=== PATIENT | female | born 1985 | race Caucasian/White ===

== ENCOUNTER → 2018-07-27 | Outpatient (CLI) | payer OTHER ==
[~2018-07-27] MED LIST: ADAL40PEN; CIPR500 PO; HYDACE5 PO; METR500 PO; MONO-LINYAH1 EACH PO; PROM25 PO; SERT100 PO; TRAM50 PO
[2018-07-27 14:30] LABS: BASOPHILS ABSOLUTE AUTO 0.03 K/mm3 (0.00-0.23); BASOPHILS PERCENT AUTO 1 % (0-2); EOSINOPHILS ABSOLUTE AUTO 0.16 K/mm3 (0.00-0.68); EOSINOPHILS PERCENT AUTO 3 % (0-6); Hematocrit 37.3 % (33.0-51.0); Hemoglobin 13.1 g/dL (11.5-16.0); IMMATURE GRAN ABSOLUTE AUTO 0.02 K/mm3 (0.00-0.10); IMMATURE GRAN PERCENT AUTO 0 % (0-1); LYMPHOCYTES ABSOLUTE AUTO 1.52 K/mm3 (0.84-5.20); LYMPHOCYTES PERCENT AUTO 28 % (21-46); MONOCYTES ABSOLUTE AUTO 0.35 K/mm3 (0.16-1.47); MONOCYTES PERCENT AUTO 6 % (4-13); Mean Corpuscular HGB 30.3 pg (26.0-34.0); Mean Corpuscular HGB Conc 35.1 g/dL (31.5-36.5); Mean Corpuscular Volume 86 fL (80-100); Mean Platelet Volume 8.5 fL (9.1-12.4); NEUTROPHILS ABSOLUTE AUTO 3.36 K/mm3 (1.96-9.15); NEUTROPHILS PERCENT AUTO 62 % (41-73); Platelet Count 392 K/mm3 (150-400); RDW Coefficient Variation 13.7 % (11.7-14.2); RDW Standard Deviation 41.8 fL (35.1-46.3); Red Blood Cell Count 4.32 M/mm3 (3.80-5.20); White Blood Cell Count 5.44 K/mm3 (4.00-11.30)
[2018-07-27 14:47] LABS: Alanine Aminotransfer (ALT/SGP 22 U/L (12-78); Albumin, Blood 3.7 g/dL (3.4-5.0); Albumin/Globulin Ratio 0.9 (0.8-1.8); Alk Phos 57 U/L (40-126); Anion Gap 9 mmol/L (6-16); Aspartate Aminotrans (AST/SGOT 17 U/L (12-37); Bilirubin, Total 0.5 mg/dL (0.1-1.0); Blood Urea Nitrogen 6 mg/dL (8-24); CO2, Blood 26 mmol/L (21-32); Calcium, Blood 9.1 mg/dL (8.5-10.1); Chloride, Blood 105 mmol/L (98-108); Creatinine, Blood 0.67 mg/dL (0.40-1.00); Globulin, Blood 3.9 g/dL (2.2-4.0); Glomerular Filtration Rate >60 (60-); Glucose, Blood 87 mg/dL (70-99); Potassium, Blood 3.5 mmol/L (3.5-5.5); Sodium, Blood 140 mmol/L (136-145); Total Protein, Blood 7.6 g/dL (6.4-8.2)
[2018-07-27 14:48] LABS: Troponin I <0.017 ng/mL (0.000-0.040)
== END ==
LOC: LAB EV 14:26 → LAB SHORT 14:26
PROVIDERS: Physician Assistant
DX: R07.9 Chest pain, unspecified (principal); N39.0 Urinary tract infection, site not specified; R10.9 Unspecified abdominal pain
CPT/HCPCS: 80053; 83690; 84484; 85025; 85379; 87086

== ENCOUNTER → 2018-12-20 | Outpatient (CLI) | payer OTHER | END | disposition home or self-care (01) | LOC: LAB SHORT 19:11 → LAB 19:11 | PROVIDERS: Nurse Practitioner Family | DX: Z12.4 Encounter for screening for malignant neoplasm of cervix (principal) | CPT/HCPCS: G0145 ==

== ENCOUNTER 2019-01-30 14:27 | Emergency (ER) | payer OTHER ==
[~2019-01-30] VITALS: Ht 144.8 cm; Wt 45.4 kg
[2019-01-30] MEDS ORDERED: Ultram50 MG PO (17:59)
== END 2019-01-30 18:02 | disposition home or self-care (01) ==
LOC: ER 14:27
DX: M25.561 Pain in right knee (principal); Z88.8 Allergy status to other drugs, medicaments and biological substances; Z88.5 Allergy status to narcotic agent; Z79.899 Other long term (current) drug therapy
CPT/HCPCS: 73562-RT; 99283-25

== ENCOUNTER 2019-04-17 00:18 | Day surgery (SDC) | payer OTHER ==
[~2019-04-17 00:18] MED LIST changes: +Ultram50 MG PO
== END 2019-04-17 16:16 | disposition home or self-care (01) ==
LOC: ATC 00:18
DX: K50.90 Crohn's disease, unspecified, without complications (principal); Z88.5 Allergy status to narcotic agent; Z88.6 Allergy status to analgesic agent
CPT/HCPCS: 96375; 96413; 96415; A9270; J1720; J7050; Q0163; Q5103

== ENCOUNTER 2019-05-08 00:22 | Day surgery (SDC) | payer OTHER | END 2019-05-08 16:40 | disposition home or self-care (01) | LOC: ATC 00:22 | DX: K50.90 Crohn's disease, unspecified, without complications (principal); F41.9 Anxiety disorder, unspecified; F32.9 Major depressive disorder, single episode, unspecified; Z79.899 Other long term (current) drug therapy; Z88.8 Allergy status to other drugs, medicaments and biological substances | CPT/HCPCS: 96375; 96413; 96415; A9270; J1720; J7050; Q0163; Q5103 ==

== ENCOUNTER 2019-05-22 00:18 | Day surgery (SDC) | payer OTHER | END 2019-05-22 23:09 | disposition home or self-care (01) | LOC: ATC 00:18 | DX: K50.90 Crohn's disease, unspecified, without complications (principal); F41.9 Anxiety disorder, unspecified; F32.9 Major depressive disorder, single episode, unspecified; Z79.899 Other long term (current) drug therapy; Z88.8 Allergy status to other drugs, medicaments and biological substances | CPT/HCPCS: 96375; 96413; 96415; A9270; J1720; J7050; Q0163; Q5103 ==

== ENCOUNTER 2019-07-17 00:05 | Day surgery (SDC) | payer OTHER | END 2019-07-17 17:02 | disposition home or self-care (01) | LOC: ATC 00:05 | DX: K50.90 Crohn's disease, unspecified, without complications (principal); F41.9 Anxiety disorder, unspecified; F32.9 Major depressive disorder, single episode, unspecified; R62.50 Unspecified lack of expected normal physiological development in childhood; Z79.899 Other long term (current) drug therapy; Z88.5 Allergy status to narcotic agent; Z88.6 Allergy status to analgesic agent | CPT/HCPCS: 96365; 96366; 96375; A9270; J1720; J7050; Q0163; Q5103 ==

== ENCOUNTER 2019-08-27 13:55 | Emergency (ER) | payer OTHER ==
[~2019-08-27] VITALS: Ht 144.8 cm; Wt 45.4 kg
== END 2019-08-27 15:51 | disposition home or self-care (01) ==
LOC: ER 13:55
DX: S80.02XA Contusion of left knee, initial encounter (principal); Z88.5 Allergy status to narcotic agent; Z88.6 Allergy status to analgesic agent; Z79.899 Other long term (current) drug therapy; W19.XXXA Unspecified fall, initial encounter
CPT/HCPCS: 73562-LT; 99283-25

== ENCOUNTER 2019-09-11 00:10 | Day surgery (SDC) | payer OTHER | END 2019-09-11 16:54 | disposition home or self-care (01) | LOC: ATC 00:10 | DX: K50.90 Crohn's disease, unspecified, without complications (principal); F43.10 Post-traumatic stress disorder, unspecified; F43.23 Adjustment disorder with mixed anxiety and depressed mood; F89 Unspecified disorder of psychological development; Z79.899 Other long term (current) drug therapy; Z88.5 Allergy status to narcotic agent; Z88.6 Allergy status to analgesic agent | CPT/HCPCS: 96375; 96413; 96415; A9270; J0171; J1720; J7050; J7512; Q0163; Q5103 ==

== ENCOUNTER 2019-11-06 00:04 | Day surgery (SDC) | payer OTHER | END 2019-11-06 16:26 | disposition home or self-care (01) | LOC: ATC 00:04 | DX: K50.90 Crohn's disease, unspecified, without complications (principal); F41.9 Anxiety disorder, unspecified; F32.9 Major depressive disorder, single episode, unspecified; Z79.899 Other long term (current) drug therapy; Z88.6 Allergy status to analgesic agent; Z88.5 Allergy status to narcotic agent | CPT/HCPCS: A9270; J1720; J7050; Q0163; Q5103 ==

== ENCOUNTER 2020-01-01 00:15 | Day surgery (SDC) | payer OTHER ==
[2020-01-01] MEDS ORDERED: INFLECTRA100 MG IV (14:44)
== END 2020-01-01 16:28 | disposition home or self-care (01) ==
LOC: ATC 00:15
DX: K50.90 Crohn's disease, unspecified, without complications (principal); F41.9 Anxiety disorder, unspecified; F32.9 Major depressive disorder, single episode, unspecified; Z79.899 Other long term (current) drug therapy; Z88.5 Allergy status to narcotic agent
CPT/HCPCS: A9270; J1720; J7050; Q0163; Q5103

== ENCOUNTER 2020-04-23 00:07 | Day surgery (SDC) | payer OTHER ==
[~2020-04-23 00:07] MED LIST changes: +INFLECTRA100 MG IV
== END 2020-04-23 16:15 | disposition home or self-care (01) ==
LOC: ATC 00:07
DX: K50.90 Crohn's disease, unspecified, without complications (principal); F32.9 Major depressive disorder, single episode, unspecified; F41.9 Anxiety disorder, unspecified; Z79.899 Other long term (current) drug therapy; Z88.6 Allergy status to analgesic agent; Z88.5 Allergy status to narcotic agent
CPT/HCPCS: 96375; 96413; 96415; A9270; J1720; J7050; J7512; Q0163; Q5103

== ENCOUNTER 2020-06-17 00:15 | Day surgery (SDC) | payer OTHER ==
[2020-06-19] MEDS ORDERED: GABA300 PO (15:46)
[2020-06-19] MEDS ORDERED: AMIT25 PO (15:46)
[2020-06-19] MEDS ORDERED: CYCL10 PO (15:46)
[2020-06-19] MEDS ORDERED: ONDA4 PO (15:47)
[2020-06-19] MEDS ORDERED: AZAT50 PO (15:48)
== END 2020-06-17 16:19 | disposition home or self-care (01) ==
LOC: ATC 00:15
DX: K50.90 Crohn's disease, unspecified, without complications (principal); F41.9 Anxiety disorder, unspecified; F32.9 Major depressive disorder, single episode, unspecified; Z79.899 Other long term (current) drug therapy; Z88.5 Allergy status to narcotic agent; Z88.6 Allergy status to analgesic agent
CPT/HCPCS: 96413; 96415; A9270; J1720; J7050; Q0163; Q5103

== ENCOUNTER 2020-08-12 00:08 | Day surgery (SDC) | payer OTHER ==
[~2020-08-12 00:08] MED LIST changes: +AMIT25 PO; +AZAT50 PO; +CYCL10 PO; +GABA300 PO; +ONDA4 PO
== END 2020-08-12 16:45 | disposition home or self-care (01) ==
LOC: ATC 00:08
DX: K50.90 Crohn's disease, unspecified, without complications (principal); M95.2 Other acquired deformity of head; F41.9 Anxiety disorder, unspecified; F32.9 Major depressive disorder, single episode, unspecified; F89 Unspecified disorder of psychological development; Z88.5 Allergy status to narcotic agent; Z88.6 Allergy status to analgesic agent; Z79.899 Other long term (current) drug therapy
CPT/HCPCS: A9270; J1720; J7050; Q0163; Q5103

== ENCOUNTER 2020-10-07 00:28 | Day surgery (SDC) | payer OTHER | END 2020-10-07 16:19 | disposition home or self-care (01) | LOC: ATC 00:28 | DX: K50.90 Crohn's disease, unspecified, without complications (principal); F41.9 Anxiety disorder, unspecified; F32.9 Major depressive disorder, single episode, unspecified | CPT/HCPCS: 96375; 96413; 96415; A9270; J1720; J7050; Q5103 ==

== ENCOUNTER 2020-12-02 00:04 | Day surgery (SDC) | payer OTHER | END 2020-12-02 16:12 | disposition home or self-care (01) | LOC: ATC 00:04 | DX: K51.30 Ulcerative (chronic) rectosigmoiditis without complications (principal); R23.1 Pallor; K90.0 Celiac disease; F43.10 Post-traumatic stress disorder, unspecified; F43.23 Adjustment disorder with mixed anxiety and depressed mood | CPT/HCPCS: 96375; 96413; 96415; A9270; J1720; J7050; Q5103 ==

== ENCOUNTER 2021-01-24 00:48 | Day surgery (SDC) | payer OTHER | END 2021-01-24 16:10 | disposition home or self-care (01) | LOC: ATC 00:48 | DX: K50.90 Crohn's disease, unspecified, without complications (principal); Z79.899 Other long term (current) drug therapy; Z88.5 Allergy status to narcotic agent | CPT/HCPCS: 96375; 96413; 96415; A9270; J1720; J7050; Q5103 ==

== ENCOUNTER 2021-07-11 04:11 | Day surgery (SDC) | payer OTHER ==
[~2021-07-11] VITALS: Wt 55.7 kg
== END 2021-07-11 16:07 | disposition home or self-care (01) ==
LOC: ATC 04:11
DX: K51.30 Ulcerative (chronic) rectosigmoiditis without complications (principal); Z88.6 Allergy status to analgesic agent; Z88.5 Allergy status to narcotic agent
CPT/HCPCS: 96375; 96413; 96415; A9270; J1720; J7050; Q5103

== ENCOUNTER 2021-10-31 01:23 | Day surgery (SDC) | payer OTHER ==
[~2021-10-31] VITALS: Wt 55.6 kg
== END 2021-10-31 15:31 | disposition home or self-care (01) ==
LOC: ATC 01:23
DX: K50.90 Crohn's disease, unspecified, without complications (principal); Z88.8 Allergy status to other drugs, medicaments and biological substances
CPT/HCPCS: A9270; J1720; J7050; Q5103

== ENCOUNTER 2022-02-20 00:27 | Day surgery (SDC) | payer OTHER ==
[~2022-02-20] VITALS: Wt 57.0 kg
[2022-02-20] MEDS ORDERED: TRIDERM28.4 GM TOP (15:06)
== END 2022-02-20 16:20 | disposition home or self-care (01) ==
LOC: ATC 00:27
DX: K50.90 Crohn's disease, unspecified, without complications (principal); F43.10 Post-traumatic stress disorder, unspecified; M41.9 Scoliosis, unspecified; J45.909 Unspecified asthma, uncomplicated; K64.8 Other hemorrhoids
CPT/HCPCS: A9270; J1720; J7050; Q5103

== ENCOUNTER 2022-04-17 00:20 | Day surgery (SDC) | payer OTHER ==
[~2022-04-17] VITALS: Wt 53.5 kg
[~2022-04-17 00:20] MED LIST changes: +TRIDERM28.4 GM TOP
== END 2022-04-17 15:58 | disposition home or self-care (01) ==
LOC: ATC 00:20
DX: K51.30 Ulcerative (chronic) rectosigmoiditis without complications (principal); M41.9 Scoliosis, unspecified; J45.909 Unspecified asthma, uncomplicated
CPT/HCPCS: 96375; 96413; 96415; A9270; J1720; J7050; Q5103

== ENCOUNTER 2022-06-12 03:28 | Day surgery (SDC) | payer OTHER | END 2022-06-12 16:03 | disposition home or self-care (01) | LOC: ATC 03:28 | DX: K50.90 Crohn's disease, unspecified, without complications (principal); F41.9 Anxiety disorder, unspecified; F32.A Depression, unspecified | CPT/HCPCS: A9270; J1720; J7050; Q5103 ==

== ENCOUNTER 2022-08-07 00:09 | Day surgery (SDC) | payer OTHER ==
[~2022-08-07] VITALS: Wt 48.3 kg
== END 2022-08-07 15:48 | disposition home or self-care (01) ==
LOC: ATC 00:09
DX: K50.90 Crohn's disease, unspecified, without complications (principal); M41.9 Scoliosis, unspecified; Z88.5 Allergy status to narcotic agent; Z88.6 Allergy status to analgesic agent
CPT/HCPCS: 96375; 96413; 96415; A9270; J1720; J7050; Q5103

== ENCOUNTER 2022-10-15 11:30 | Day surgery (SDC) | payer OTHER ==
[~2022-10-15] VITALS: Ht 144.8 cm; Wt 49.9 kg
--- NOTE | 2022-10-15 14:31 | NUR ---
10/15/22 1431 VINI SIMON PT WAS NOT CLEANED OUT/ RN ASSSISTED WITH AN FLEETS ENEMA. WITH GOOD RESULTS/ MEDIUM YELLOW TRANSPARENT
== END 2022-10-15 14:55 | disposition home or self-care (01) ==
LOC: ORSCSDS 11:30
PROVIDERS: Internal Medicine Gastroenterology
PROC: 0DBN8ZX Excision of Sigmoid Colon, Via Natural or Artificial Opening Endoscopic, Diagnostic (ICD-10-PCS; principal; 2022-10-15 13:00)
DX: R10.32 Left lower quadrant pain (principal); K50.90 Crohn's disease, unspecified, without complications; D12.5 Benign neoplasm of sigmoid colon; Z79.899 Other long term (current) drug therapy
CPT/HCPCS: 88305; J2704; J7120

== ENCOUNTER 2022-11-27 01:46 | Day surgery (SDC) | payer OTHER ==
[~2022-11-27] VITALS: Wt 49.4 kg
== END 2022-11-27 15:52 | disposition home or self-care (01) ==
LOC: ATC 01:46
DX: K50.90 Crohn's disease, unspecified, without complications (principal)
CPT/HCPCS: 96375; 96413; 96415; A9270; J1720; J7050; Q5103

== ENCOUNTER → 2023-01-14 | Outpatient (CLI) | payer OTHER ==
[~2023-01-14] MED LIST changes: +AZASAN75 M1; +Amitriptyline H10 MG; +CODACE30; +Cyclobenzaprine5 MG; +GABA100; +INFLECTRA100 MG; +ONDA4ODT; +SERT20L; +[UNRECOGNIZED DRUG - OTHER]
== END ==
LOC: LAB 16:00 → LAB SHORT 16:00
DX: K51.30 Ulcerative (chronic) rectosigmoiditis without complications (principal)
CPT/HCPCS: 83993

== ENCOUNTER 2023-01-22 02:34 | Day surgery (SDC) | payer OTHER ==
[2023-01-22 13:30] VITALS: BP 112/75
== END 2023-01-22 16:06 | disposition home or self-care (01) ==
LOC: ATC 02:34
DX: K50.90 Crohn's disease, unspecified, without complications (principal); Z88.5 Allergy status to narcotic agent; F43.10 Post-traumatic stress disorder, unspecified; K90.0 Celiac disease
CPT/HCPCS: 96375; 96413; 96415; A9270; J1720; J7050; Q5103

== ENCOUNTER 2023-05-14 00:17 | Day surgery (SDC) | payer OTHER ==
[2023-05-14 13:57] VITALS: BP 122/86
== END 2023-05-14 16:14 | disposition home or self-care (01) ==
LOC: ATC 00:17
DX: K50.90 Crohn's disease, unspecified, without complications (principal); J45.909 Unspecified asthma, uncomplicated; Z88.8 Allergy status to other drugs, medicaments and biological substances; Z79.899 Other long term (current) drug therapy
CPT/HCPCS: 96375; 96413; 96415; A9270; J1720; J7050; Q5103

== ENCOUNTER 2023-07-09 01:45 | Day surgery (SDC) | payer OTHER ==
[2023-07-09 13:30] VITALS: BP 125/71
== END 2023-07-09 16:10 | disposition home or self-care (01) ==
LOC: ATC 01:45
DX: K50.90 Crohn's disease, unspecified, without complications (principal); J45.909 Unspecified asthma, uncomplicated; M41.9 Scoliosis, unspecified; F43.10 Post-traumatic stress disorder, unspecified
CPT/HCPCS: 96375; 96413; 96415; A9270; J1720; J7050; Q5103

== ENCOUNTER 2023-09-03 03:12 | Day surgery (SDC) | payer OTHER ==
[2023-09-03 13:07] VITALS: BP 134/78
== END 2023-09-03 16:00 | disposition home or self-care (01) ==
LOC: ATC 03:12
DX: K50.90 Crohn's disease, unspecified, without complications (principal); F43.10 Post-traumatic stress disorder, unspecified; Z79.899 Other long term (current) drug therapy
CPT/HCPCS: 96375; 96413; 96415; A9270; J1720; J7050; Q5103

== ENCOUNTER 2023-12-27 03:50 | Day surgery (SDC) | payer OTHER ==
[2023-12-27] MEDS ORDERED: Infliximab-DYYB 300 MG in NS 250 ML IV SCH (06:00)
[2023-12-27] MEDS ORDERED: DiphenhydrAMINE HCL 25 MG Cap PO PRN (07:10)
[2023-12-27] MEDS ORDERED: Acetaminophen 325 MG TABLET PO PRN (07:10)
[2023-12-27] MEDS ORDERED: Hydrocortisone Sod Succinate 100 MG Vial IV SCH (07:10)
[2023-12-27 13:30] VITALS: BP 131/78
== END 2023-12-27 16:34 | disposition home or self-care (01) ==
LOC: ATC 03:50
DX: K50.90 Crohn's disease, unspecified, without complications (principal); F43.23 Adjustment disorder with mixed anxiety and depressed mood; F43.10 Post-traumatic stress disorder, unspecified
CPT/HCPCS: 96375; 96413; 96415; A9270; J1720; J7050; Q5103

== ENCOUNTER 2024-02-21 03:58 | Day surgery (SDC) | payer OTHER ==
[2024-02-21] MEDS ORDERED: Infliximab-DYYB 300 MG in NS 250 ML IV SCH (06:00)
[2024-02-21] MEDS ORDERED: DiphenhydrAMINE HCL 25 MG Cap PO PRN (07:25)
[2024-02-21] MEDS ORDERED: Hydrocortisone Sod Succinate 100 MG Vial IV SCH (07:25)
[2024-02-21] MEDS ORDERED: Acetaminophen 325 MG TABLET PO PRN (07:25)
[2024-02-21 13:37] VITALS: BP 113/67
== END 2024-02-21 16:45 | disposition home or self-care (01) ==
LOC: ATC 03:58
DX: K50.90 Crohn's disease, unspecified, without complications (principal); J45.909 Unspecified asthma, uncomplicated; F43.10 Post-traumatic stress disorder, unspecified
CPT/HCPCS: 96375; 96413; 96415; A9270; J1720; J7050; Q5103

== ENCOUNTER 2024-04-17 03:08 | Day surgery (SDC) | payer OTHER ==
[~2024-04-17] VITALS: Wt 58.1 kg
[2024-04-17] MEDS ORDERED: Infliximab-DYYB 300 MG in NS 250 ML IV SCH (06:55)
[2024-04-17] MEDS ORDERED: Hydrocortisone Sod Succinate 100 MG Vial IV SCH (07:00)
[2024-04-17] MEDS ORDERED: Acetaminophen 325 MG TABLET PO PRN (07:00)
[2024-04-17] MEDS ORDERED: DiphenhydrAMINE HCL 25 MG Cap PO PRN (07:00)
[2024-04-17 13:24] VITALS: BP 134/83
== END 2024-04-17 16:00 | disposition home or self-care (01) ==
LOC: ATC 03:08
DX: K50.90 Crohn's disease, unspecified, without complications (principal); Z88.5 Allergy status to narcotic agent; Z88.6 Allergy status to analgesic agent
CPT/HCPCS: 96375; 96413; 96415; A9270; J1720; J7050; Q5103

== ENCOUNTER 2024-06-12 02:07 | Day surgery (SDC) | payer OTHER ==
[~2024-06-12] VITALS: Wt 58.3 kg
[2024-06-12] MEDS ORDERED: Infliximab-DYYB 300 MG in NS 250 ML IV SCH (06:00)
[2024-06-12] MEDS ORDERED: DiphenhydrAMINE HCL 25 MG Cap PO PRN (07:20)
[2024-06-12] MEDS ORDERED: Hydrocortisone Sod Succinate 100 MG Vial IV SCH (07:20)
[2024-06-12] MEDS ORDERED: Acetaminophen 325 MG TABLET PO PRN (07:20)
[2024-06-12 13:17] VITALS: BP 124/82
== END 2024-06-12 16:18 | disposition home or self-care (01) ==
LOC: ATC 02:07
DX: K50.90 Crohn's disease, unspecified, without complications (principal); F43.10 Post-traumatic stress disorder, unspecified; K90.0 Celiac disease; Z79.899 Other long term (current) drug therapy; Z90.49 Acquired absence of other specified parts of digestive tract
CPT/HCPCS: 96375; 96413; 96415; A9270; J1720; J7050; Q5103

== ENCOUNTER 2024-08-07 03:52 | Day surgery (SDC) | payer OTHER ==
[~2024-08-07] VITALS: Wt 59.2 kg
[2024-08-07] MEDS ORDERED: Infliximab-DYYB 300 MG in NS 250 ML IV SCH (06:00)
[2024-08-07] MEDS ORDERED: DiphenhydrAMINE HCL 25 MG Cap PO SCH (07:15)
[2024-08-07] MEDS ORDERED: Hydrocortisone Sod Succinate 100 MG Vial IV SCH (07:15)
[2024-08-07] MEDS ORDERED: Acetaminophen 325 MG TABLET PO SCH (07:15)
[2024-08-07 13:47] VITALS: BP 132/91
[2024-08-07 16:18] VITALS: BP 112/71
== END 2024-08-07 23:00 | disposition home or self-care (01) ==
LOC: ATC 03:52
DX: K50.90 Crohn's disease, unspecified, without complications (principal); K90.0 Celiac disease; F43.10 Post-traumatic stress disorder, unspecified; Z79.899 Other long term (current) drug therapy; Z88.5 Allergy status to narcotic agent; Z88.6 Allergy status to analgesic agent; Z90.49 Acquired absence of other specified parts of digestive tract
CPT/HCPCS: 96375; 96413; 96415; A9270; J1720; J7050; Q5103

== ENCOUNTER 2024-10-02 07:20 | Day surgery (SDC) | payer OTHER ==
[~2024-10-02] VITALS: Wt 56.0 kg
[~2024-10-02 07:20] MED LIST changes: +Acetaminophen 325 MG TABLET PO SCH; +DiphenhydrAMINE HCL 25 MG Cap PO SCH; +Hydrocortisone Sod Succinate 100 MG Vial IV SCH; +Infliximab-DYYB 300 MG in NS 250 ML IV SCH
[2024-10-02 14:20] VITALS: BP 159/88
== END 2024-10-02 17:13 | disposition home or self-care (01) ==
LOC: ATC 07:20
DX: K50.90 Crohn's disease, unspecified, without complications (principal); J45.909 Unspecified asthma, uncomplicated; Z79.899 Other long term (current) drug therapy; Z88.6 Allergy status to analgesic agent; Z88.5 Allergy status to narcotic agent
CPT/HCPCS: 96375; 96413; 96415; A9270; J1720; J7050; Q5103

== ENCOUNTER 2024-12-04 01:35 | Day surgery (SDC) | payer OTHER ==
[~2024-12-04 01:35] MED LIST changes: -Acetaminophen 325 MG TABLET PO SCH; -DiphenhydrAMINE HCL 25 MG Cap PO SCH; -Hydrocortisone Sod Succinate 100 MG Vial IV SCH; -Infliximab-DYYB 300 MG in NS 250 ML IV SCH
[2024-12-04] MEDS ORDERED: Infliximab-DYYB 300 MG in NS 250 ML IV SCH (06:00)
[2024-12-04] MEDS ORDERED: DiphenhydrAMINE HCL 25 MG Cap PO SCH (07:20)
[2024-12-04] MEDS ORDERED: Hydrocortisone Sod Succinate 100 MG Vial IV SCH (07:20)
[2024-12-04] MEDS ORDERED: Acetaminophen 325 MG TABLET PO SCH (07:20)
[2024-12-04 15:29] VITALS: BP 113/69
[2024-12-04 15:44] LABS: Performing Lab PROMETHEUS; Test Name ANSER IFX
== END 2024-12-04 17:35 | disposition home or self-care (01) ==
LOC: ATC 01:35
PROVIDERS: Physician Assistant Medical
DX: K51.30 Ulcerative (chronic) rectosigmoiditis without complications (principal); J45.909 Unspecified asthma, uncomplicated; Z88.8 Allergy status to other drugs, medicaments and biological substances; Z79.899 Other long term (current) drug therapy
CPT/HCPCS: 96375; 96413; 96415; A9270; J1720; J7050; Q5103

== ENCOUNTER 2024-12-08 11:51 | Day surgery (SDC) | payer OTHER ==
[~2024-12-08] VITALS: Ht 144.8 cm; Wt 53.9 kg
[~2024-12-08 11:51] MED LIST changes: +propofoL 50 ML IV ONE
[2024-12-08] MEDS ORDERED: Lactated Ringer's 1,000 ML IV ONE (13:46)
--- NOTE | 2024-12-08 14:16 | NUR ---
12/08/24 1416 Mona Mcginnis PT DESATURATED TO 65% ON 3L NC 2 MINUTES AFTER SEDATION. POM MASK PLACED AT 15L W/ JAW THRUST INTERVENTION. PT QUICKLY INCREASED TO 100%. CASE CHANGED TO FLEX SIG D/T POOR PREP. PER MD, PT HAS SMALL AIRWAY AND DESATURATION, PT NEEDS TO BE MAC IN THE FUTURE.
[2024-12-08 15:20] VITALS: BP 127/84
--- NOTE | 2024-12-08 15:23 | NUR ---
12/08/24 1523 Enrico Zheng ADDITIONAL QUESTIONS ABOUT D/C CLARIFIED WITH FAMILY PRESENT AT TIME OF D/C. PT INSTRUCTED TO FOLLOW UP WITH DR. JOHNSON'S OFFICE REGARDING REPEATE COLONOSCOPY.
== END 2024-12-08 15:00 | disposition home or self-care (01) ==
LOC: ORSCSDS 11:51
PROVIDERS: Internal Medicine Gastroenterology
PROC: 0DJD8ZZ Inspection of Lower Intestinal Tract, Via Natural or Artificial Opening Endoscopic (ICD-10-PCS; principal; 2024-12-08 13:45)
DX: K50.90 Crohn's disease, unspecified, without complications (principal); K90.0 Celiac disease; R62.50 Unspecified lack of expected normal physiological development in childhood; F43.10 Post-traumatic stress disorder, unspecified; Z79.899 Other long term (current) drug therapy
CPT/HCPCS: J2704

== ENCOUNTER 2024-12-25 17:10 | Inpatient (IN) | payer OTHER ==
[~2024-12-25] VITALS: Ht 162.6 cm; Wt 56.1 kg
[~2024-12-25 17:10] MED LIST changes: -Amitriptyline H10 MG; -Cyclobenzaprine5 MG; -GABA100; -ONDA4ODT; +ONDA4ODT PO; -propofoL 50 ML IV ONE
[2024-12-25] MEDS ORDERED: Lactated Ringer's 1,000 ML IV ONE ×2 (17:20→17:45)
[2024-12-25 17:40] LABS: Calcium, Ionized (POC) 1.34 mmol/L (1.10-1.46); Chloride (POC) 119 mmol/L (98-108); Creatinine (POC) 0.9 mg/dL (0.6-1.0); Glucose (ISTAT POC) 110 mg/dL (70-99); Hemoglobin (POC) 17.3 g/dL (12.0-16.0); Potassium (POC) 2.9 mmol/L (3.5-5.5); Sodium (POC) 142 mmol/L (135-148); Total CO2 (POC) 7 mmol/L (21-32)
[2024-12-25 17:47] LABS: Base Excess Venous -25.1 mmol/L; Bicarbonate Venous 9.4 mmol/L (24.0-30.0); Mean Platelet Volume 8.8 fL (9.1-12.4); PCO2 Venous 16.7 mmHg (38-42); RDW Coefficient Variation 15.8 % (11.7-14.2)
[2024-12-25 17:48] LABS: pH Blood Venous 7.08 (7.34-7.37)
[2024-12-25 17:55] LABS: Hematocrit 48.3 % (33.0-51.0); Hemoglobin 16.6 g/dL (11.5-16.0); Mean Corpuscular HGB 29.8 pg (26.0-34.0); Mean Corpuscular HGB Conc 34.4 g/dL (31.5-36.5); Mean Corpuscular Volume 87 fL (80-100); Platelet Count 706 K/mm3 (150-400); RDW Standard Deviation 48.2 fL (35.1-46.3); Red Blood Cell Count 5.57 M/mm3 (3.80-5.20); White Blood Cell Count 35.18 K/mm3 (4.00-11.30)
[2024-12-25 18:13] LABS: BAND PERCENT MAN 16 % (0-8); BASOPHILS PERCENT MAN 0 % (0-2); EOSINOPHILS PERCENT MAN 0 % (0-6); LYMPHOCYTES PERCENT MAN 4 % (21-46); MONOCYTES ABSOLUTE MAN 2.11 K/mm3 (0.16-1.47); MONOCYTES PERCENT MAN 6 % (4-13); NEUTROPHILS ABSOLUTE MAN 31.66 K/mm3 (1.96-9.15); SEG NEUTROPHILS PERCENT MAN 74 % (41-73); TOTAL CELLS COUNTED 100
[2024-12-25 18:28] LABS: Magnesium, Blood 2.6 mg/dL (1.6-2.4)
[2024-12-25] MEDS ORDERED: Ondansetron HCl 2 MG / ML 2ML Vial IV ONE (18:30)
[2024-12-25 18:32] LABS: Influenza A, PCR NEGATIVE (NEGATIVE); Influenza B, PCR NEGATIVE (NEGATIVE); Resp Syncytial Virus, PCR NEGATIVE (NEGATIVE); SARS-Cov-2 (COVID-19) PCR, MMC NEGATIVE (NEGATIVE)
[2024-12-25 18:43] LABS: Albumin, Blood 4.6 g/dL (3.4-5.0); Albumin/Globulin Ratio 0.9 (0.8-1.8); Bilirubin, Total 0.5 mg/dL (0.1-1.0); Bun/Creatinine Ratio 25.6 (12.0-20.0); Calcium, Blood 10.3 mg/dL (8.5-10.1); Creatinine, Blood 0.78 mg/dL (0.40-1.00); Globulin, Blood 5.2 g/dL (2.2-4.0); Potassium, Blood 2.9 mmol/L (3.5-5.5); Total Protein, Blood 9.8 g/dL (6.4-8.2)
[2024-12-25] MEDS ORDERED: Potassium Chl 20MEQ/Water100ML 300 ML IV ONE (18:50)
[2024-12-25 18:53] LABS: Source, Urine Clean Catch
[2024-12-25 19:36] LABS: Bilirubin, Urine Neg (Neg); Blood, Urine 5+ (Neg); Color, Urine Yellow (P-Yellow); Glucose Qualitative, Urine Neg (Neg); Ketones, Urine 4+ (Neg); Leukocyte Esterase, Urine 1+ (Neg); Nitrite, Urine Neg (Neg); Protein, Urine 3+ (Neg); Specific Gravity, Urine 1.025 (1.003-1.022); Urobilinogen, Urine NORM (Normal)
[2024-12-25 19:45] LABS: Appearance, Urine Hazy (Clear)
[2024-12-25 19:47] LABS: Amorphous Mod (0-Heavy); Bacteria Many /hpf; Mucus Light (0-Heavy); Red Blood Cells, Urine 25-50 /hpf (0-2); Squamous Epithelial Cells Few /hpf (Few)
[2024-12-25] MEDS ORDERED: Sodium Bicarb 8.4% 1 MEQ/ML 50 ML Vial ONE (19:49)
[2024-12-25] MEDS ORDERED: CefTRIAXone Sodium 1,000 MG in NS 50 ML IV ONE (20:35)
[2024-12-25] MEDS ORDERED: Sodium Bicarb 8.4% 1 MEQ/ML 50 ML Vial IV ONE (21:20)
[2024-12-25] MEDS ORDERED: Sodium Bicarb 8.4% Inj 100 MEQ in Sodium Chloride 0.45% 1,000 ML IV SCH (21:20)
[2024-12-25] MEDS ORDERED: Metoclopramide HCl 5MG / ML 2ML Vial IV PRN (21:20)
[2024-12-25] MEDS ORDERED: Ondansetron HCl 2 MG / ML 2ML Vial IV PRN (21:25)
[2024-12-25] MEDS ORDERED: FentaNYL Citrate 50 MCG/ML 2 ML Injection IV PRN (21:25)
[2024-12-25 23:39] LABS: U Amphetamine Screen Not Detected; U Barbituate Screen Not Detected; U Benzodiazapine Screen Not Detected; U Buprenorphine Screen Not Detected; U Cannabinoids Screen Not Detected; U Cocaine Screen Not Detected; U Methadone Screen Not Detected; U Methamphetamine Screen Not Detected; U Opiates Screen Not Detected; U Oxycodone Screen Not Detected; U Phencyclidine Screen Not Detected
[2024-12-25 23:53] VITALS: BP 153/100
[2024-12-26] VITALS (8 sets, daily range): BP systolic 116–165; BP diastolic 63–91
[2024-12-26 00:30] LABS: Bicarbonate Venous 12.5 mmol/L (24.0-30.0); PCO2 Venous 14.9 mmHg (38-42)
[2024-12-26 01:30] LABS: Bun/Creatinine Ratio 25.6 (12.0-20.0); Calcium, Blood 8.9 mg/dL (8.5-10.1); Creatinine, Blood 0.59 mg/dL (0.40-1.00); Potassium, Blood 2.4 mmol/L (3.5-5.5)
[2024-12-26] MEDS ORDERED: Potassium Chloride 40 MEQ in NS 250 ML IV ONE ×2 (01:55→18:45)
[2024-12-26] MEDS ORDERED: Lactated Ringer's 1,000 ML IV SCH (02:25)
--- NOTE | 2024-12-26 04:00 | NUR ---
SHIFT SUMMURY: A/0 X4. SOFT SPOKEN. BP STABLE WITH MAP GREATER THAN 65. ST IN THE 120'S. DENIES CHEST PAIN/PRESSURE/ SOB. O2 SATURATION GREATER THAN 90 ON RA. PHYSICIAN MADE AWARE OF CRITICAL POTASSIUM AND VBG RESULTS. BICARBONATE DRIP DISCONTINUED AND LACTATER RINGERS INITIATED AND CURRENTLY INFUSING VIA PUMP. REPEAT VBG AND CMP ORDERED FOR THIS AM. ASSISTED TO THE BEDSIDE COMMODE X 2 ABLE TO STAND AND PIVOT. CALL LIGNT IS WITHIN REACH AND BED IS AT THE LOWEST POSITION.
[2024-12-26 04:08] LABS: Base Excess Venous -17.6 mmol/L; Bicarbonate Venous 13.4 mmol/L (24.0-30.0); PCO2 Venous 15.3 mmHg (38-42); pH Blood Venous 7.34 (7.34-7.37)
[2024-12-26 04:25] LABS: BASOPHILS ABSOLUTE AUTO 0.02 K/mm3 (0.00-0.23); BASOPHILS PERCENT AUTO 0 % (0-2); EOSINOPHILS PERCENT AUTO 0 % (0-6); Hematocrit 34.9 % (33.0-51.0); Hemoglobin 12.4 g/dL (11.5-16.0); IMMATURE GRAN ABSOLUTE AUTO 0.14 K/mm3 (0.00-0.10); IMMATURE GRAN PERCENT AUTO 1 % (0-1); LYMPHOCYTES ABSOLUTE AUTO 1.78 K/mm3 (0.84-5.20); LYMPHOCYTES PERCENT AUTO 9 % (21-46); MONOCYTES ABSOLUTE AUTO 1.84 K/mm3 (0.16-1.47); MONOCYTES PERCENT AUTO 9 % (4-13); Mean Corpuscular HGB Conc 35.5 g/dL (31.5-36.5); Mean Corpuscular Volume 85 fL (80-100); NEUTROPHILS ABSOLUTE AUTO 16.69 K/mm3 (1.96-9.15); NEUTROPHILS PERCENT AUTO 82 % (41-73); Platelet Count 475 K/mm3 (150-400); RDW Coefficient Variation 15.5 % (11.7-14.2); RDW Standard Deviation 46.1 fL (35.1-46.3); Red Blood Cell Count 4.13 M/mm3 (3.80-5.20); White Blood Cell Count 20.47 K/mm3 (4.00-11.30)
[2024-12-26 04:55] LABS: Magnesium, Blood 2.2 mg/dL (1.6-2.4)
[2024-12-26 05:02] LABS: Albumin, Blood 3.1 g/dL (3.4-5.0); Albumin/Globulin Ratio 0.9 (0.8-1.8); Bilirubin, Total 0.5 mg/dL (0.1-1.0); Bun/Creatinine Ratio 24.3 (12.0-20.0); Calcium, Blood 8.5 mg/dL (8.5-10.1); Creatinine, Blood 0.58 mg/dL (0.40-1.00); Globulin, Blood 3.6 g/dL (2.2-4.0); Potassium, Blood 2.5 mmol/L (3.5-5.5)
[2024-12-26 05:03] LABS: Total Protein, Blood 6.7 g/dL (6.4-8.2)
[2024-12-26] MEDS ORDERED: Sodium Bicarb 8.4% Inj 100 MEQ in Sodium Chloride 0.45% 1,000 ML IV SCH ×2 (05:20→13:30)
[2024-12-26] MEDS ORDERED: Potassium Phosphate Dibasic 20 MM in Dextrose 5% 500 ML IV ONE (05:20)
--- NOTE | 2024-12-26 05:25 | NUR ---
NURSE NOTE: PHYSICIAN MADE AWARE OF CRITICAL LAB. ORDER RECEIVED TO RESUME BICARBOBATE DRIP FOR 4 HOURS,THEN CONTINUE WITH THE LACTATED RINGERS.
--- NOTE | 2024-12-26 06:11 | NUR ---
PHYSICIAN NOTIFICATION: ELIEZER FIELD NOTIFIED OF INCREASED HR/ST WITH PVC'S. ODER RECEIVED FOR EKG AND CONTINUE FLUIDS. NO OTHER ORDERS RECEIVED.
--- NOTE | 2024-12-26 09:15 | NUR ---
dr. black in at bedside for gi consult, per he reccomended for NG to be in for 24 hours then removed if little to no output.Dr. Staton in at bedside patient to start steroids and correct electrolyte imbalance, dr. Staton will address other issues today as well.
--- NOTE | 2024-12-26 10:20 | NUR ---
NOTED RIGHT SIDED FACIAL DROOP, PATIENT HAVING DIFFICULTY TALKING- NOTIFIED NON-CONTRAST HEAD CT ORDERED.
[2024-12-26 12:29] LABS: Base Excess Venous -15.3 mmol/L; Bicarbonate Venous 14.1 mmol/L (24.0-30.0); PCO2 Venous 24.9 mmHg (38-42)
[2024-12-26 12:30] LABS: pH Blood Venous 7.27 (7.34-7.37)
[2024-12-26 12:50] LABS: Magnesium, Blood 2.3 mg/dL (1.6-2.4); Phosphorus, Blood 1.4 mg/dL (2.5-4.9)
[2024-12-26] MEDS ORDERED: Potassium Phosphate Dibasic 20 MM in Dextrose 5% 500 ML IV STA (13:11)
--- NOTE | 2024-12-26 14:07 | NUR ---
PATIENT REPORTS RIGHT SHOULDER PAIN, OFFERED PATIENT A HEATING PAD AND PATIENT ACCEPTED. HEATING PAD APPLIED TO RIGHT SHOULDER IN 30MINUTE INTERVALS. PILLOW CASE INBETWEEN PATIENTS SKIN AND PAD.
--- NOTE | 2024-12-26 14:39 | NUR ---
"Spiritual Care |equest Pt. looks to be awake andd breathing, but is staring with eyes half open. pt. doesn't repsond to this embedded systems developer's greeting. After continuous attempts weree met with no response, this embedded systems developer prayed or Pt. Will remain available to the Pt."
--- NOTE | 2024-12-26 14:48 | NUR ---
SHIFT SUMMARY/TRANSFER OF CARE TO SAMI Chun RN. PATIENT IS A&OX4. PATIENTS SPEECH IS SOFT AND AT TIMES HARD TO UNDERSTAND-PATIENT REPORTS THAT SHE HAS TEETH AT HOME AND IT IS DIFFICULT TO TALK WITH OUT THEM. PATIENT HAS A HX OF DEVELOPMENTAL DELAY. PATIENT AMBULATES WELL FROM BED TO CHAIR/BSC WITH 1P ASSIST AND STEADY GAIT. PATIENTS HEART RATE AT THE BEGINNING OF SHIFT WAS THE 130-140'S AND SINCE HAS IMPROVED AT 110-120'S-PATIENT DENIES CHEST PAIN/PRESSURE/TIGHTNESS. PATIENTS POTASSIUM LOW TODAY SEE LABS-REPLACEMENT POTASSIUM CURRENTLY INFUSING. PLAN AT THIS TIME IS TO CORRECT ELECTROLYTE IMBALANCE, TREAT ENTERITIS AND INFECTION. HEAD CT W/O CONTRAST COMPLETED TODAY D/T PATIENT HAVING A NOTED RIGHT FACIAL DROOP-SEE PREVIOUS NOTES-RIGHT FACIAL DROOP HAS IMPROVED, PATIENT MAINTAINED STRENGTH TO RIGHT SIDE EXTREMITIES. PATIENT HAS LABS PENDING AT THIS TIME. PATIENT LIVES ALONE IN A TRAILER ON HER BROTHERS PROPERTY AND LUBNA (BROTHERS GIRLFRIEND) IS CAREGIVER TO PATIENT. PATIENTS PARENTS IN TODAY, PATIENT GAVE VERBAL PERMISSION TO OBTAIN PATIENT INFORMATION-PARENTS UPDATED ON PLAN AND SITUATION. PATIENT WEARS GLASSES AT BASELINE-FAMILY TO BRING IN WITH HER DENTURES. PATIENT HAS NG IN THE LEFT NOSTRIL-PER NG TUBE CAN BE REMOVED AFTER 24 HOURS IF MINIMAL TO NO OUTPUT FROM NG TUBE, PATIENT STATES "SHE WOULD LIKE IT OUT" BUT UNDERSTANDS THE NEED TO LEAVE IN TIL 24HOURS AND LONG MINIMAL TO NO OUTPUT IS OBSERVED. PUMP CLEARED AND DOCUMENTED. PATIENT IS IN BED WITH IV INFUSING PER ORDERS. BED IS LOCKED IN THE LOWEST POSITION WITH CALL LIGHT IN REACH. NEEDS ASSESSED-PATEINT DENIES NEEDS AT THIS TIME. UPDATES GIVEN TO SAMI MONTES DE OCA. PATIENT INFORMED THAT THIS RN IS LEAVING AND SAMI IS TAKING OVER PRIMARY CARE.
[2024-12-26] MEDS ORDERED: MethylPREDNISolone Sod Succ 125 MG Vial IV SCH (16:00)
[2024-12-26 16:25] LABS: Osmolality, Serum 316 mos/KG (275-300); Salicylate 2.7 mg/dL (2.8-20.0)
[2024-12-26 16:32] LABS: Acetaminophen, Random <2.0 ug/mL (10.0-30.0)
[2024-12-26 17:33] LABS: Bun/Creatinine Ratio 17.9 (12.0-20.0); Calcium, Blood 8.1 mg/dL (8.5-10.1); Creatinine, Blood 0.45 mg/dL (0.40-1.00); Potassium, Blood 2.5 mmol/L (3.5-5.5)
[2024-12-26] MEDS ORDERED: CefTRIAXone Sodium 1,000 MG in NS 100 ML IV SCH (18:00)
[2024-12-26 18:43] LABS: Base Excess Venous -13.2 mmol/L; Bicarbonate Venous 15.5 mmol/L (24.0-30.0); PCO2 Venous 23.9 mmHg (38-42); pH Blood Venous 7.34 (7.34-7.37)
--- NOTE | 2024-12-26 19:26 | NUR ---
EOS: ONLY CHANGES FROM PREIVOUS RN NOTE WAS PATIENT VBG IMPROVED WHICH WARRENTED THE DECREASE IN BICARB RATE ORDER CHANGED TO REFLECT NEW RATE AND DOCUMENTATION IN EMAR. ADDITIONALLY POTASSIUM DID NOT IMPROVE NOTIFIED PROVIDER AND NEW ORDER FOR IV OBTAINED. PATIENT OVERALL IMPROVING STILL ST 110-120'S. AFEBRILE. POWEGLIDE IN PLACE FELIX DIFFICULT INSERTION. PATIENT VOIDING WELL NO ACUTE CONCERNS, DENIES INCREASED ABD PAIN, CHEST PAIN PRESSURE OR SOB.
[2024-12-27 04:54] VITALS: BP 132/84
[2024-12-27 05:39] LABS: Base Excess Venous -12.3 mmol/L; Bicarbonate Venous 16.1 mmol/L (24.0-30.0); PCO2 Venous 28.3 mmHg (38-42); pH Blood Venous 7.31 (7.34-7.37)
[2024-12-27 05:52] LABS: BASOPHILS ABSOLUTE AUTO 0.02 K/mm3 (0.00-0.23); BASOPHILS PERCENT AUTO 0 % (0-2); EOSINOPHILS PERCENT AUTO 0 % (0-6); Hematocrit 39.1 % (33.0-51.0); Hemoglobin 13.8 g/dL (11.5-16.0); IMMATURE GRAN ABSOLUTE AUTO 0.14 K/mm3 (0.00-0.10); IMMATURE GRAN PERCENT AUTO 1 % (0-1); LYMPHOCYTES ABSOLUTE AUTO 0.84 K/mm3 (0.84-5.20); LYMPHOCYTES PERCENT AUTO 5 % (21-46); MONOCYTES ABSOLUTE AUTO 0.66 K/mm3 (0.16-1.47); MONOCYTES PERCENT AUTO 4 % (4-13); Mean Corpuscular HGB 29.7 pg (26.0-34.0); Mean Corpuscular HGB Conc 35.3 g/dL (31.5-36.5); Mean Corpuscular Volume 84 fL (80-100); Mean Platelet Volume 8.8 fL (9.1-12.4); NEUTROPHILS ABSOLUTE AUTO 13.79 K/mm3 (1.96-9.15); NEUTROPHILS PERCENT AUTO 89 % (41-73); Platelet Count 392 K/mm3 (150-400); RDW Coefficient Variation 16.4 % (11.7-14.2); RDW Standard Deviation 48.1 fL (35.1-46.3); Red Blood Cell Count 4.64 M/mm3 (3.80-5.20); White Blood Cell Count 15.45 K/mm3 (4.00-11.30)
--- NOTE | 2024-12-27 05:52 | NUR ---
SHIFT SUMMURY: A/O X 4. ON RA WITH SATURATION > 90. BP STABLE/ MAP >90. HR ST108. CONTINUOUS BICARBONATE GTT AND LACTATED RINGERS INFUSING PER EMAR. ASSISTED TO HE BEDSIDE COMMODE WITH IMPROVEMENT WITH OVERAL STRENGH COMPARED TO LAST NIGHT. CALLS APPROPRIATELY. UNABLE TO DRAW BLOOD FROM LINE/LAB NOTIFIED AND WILL DRAW AM LABS. CALL LIGHT IS WITHIN REACH AND BED IS AT THE LOWEST POSITION.
[2024-12-27 06:03] LABS: Bun/Creatinine Ratio 12.8 (12.0-20.0); Creatinine, Blood 0.39 mg/dL (0.40-1.00); Phosphorus, Blood 1.2 mg/dL (2.5-4.9); Potassium, Blood 2.8 mmol/L (3.5-5.5)
[2024-12-27] MEDS ORDERED: Potassium Phosphate Dibasic 20 MM in Dextrose 5% 500 ML IV ONE (06:30)
[2024-12-27 08:16] VITALS: BP 143/91
[2024-12-27] MEDS ORDERED: Potassium Chloride 40 MEQ in NS 250 ML IV ONE (11:00)
[2024-12-27 11:29] VITALS: BP 149/96
[2024-12-27 15:51] LABS: Bun/Creatinine Ratio 13.9 (12.0-20.0); Calcium, Blood 8.8 mg/dL (8.5-10.1); Creatinine, Blood 0.36 mg/dL (0.40-1.00); Potassium, Blood 3.1 mmol/L (3.5-5.5)
[2024-12-27 15:56] VITALS: BP 142/94
--- NOTE | 2024-12-27 18:54 | NUR ---
SHIFT SUMMARY. PATIENT IS A&OX4, ABLE TO MAKE HER NEEDS KNOWN. PATIENT HAD NG TUBE REMOVED TODAY 12/27/24-PATIENT EXPERIENCED NAUSEA WITH REMOVAL OF THE NG TUBE BUT DID NOT REQUIRE OR NEED ANITNAUSEA MEDICATIONS AND HAS DENIED NAUSEA THIS SHIFT. PATIENT STARTED ON A CLEAR LIQUID DIET-PATIENT IS TOLERATING LIQUIDS WELL, DIET CAN BE ADVANCED TOLERATED, WOULD RECCOMEND TRYING CRACKERS. PATIENT IS CONTINENT OF BOWEL AND BLADDER-PATIENT HAD FORMED BM TODAY, GI PANEL CANCELLED PER R/T NEGATIVE SYMPTOMS. PATIENTS POTASSIUM HAS IMPROVED >3 THIS EVENING AT LAST LAB DRAW; SEE LABS. PATIENT REPORTS FEELING BETTER TODAY. PATIENT HAS DENTURES THAT SHE CURRENTLY HAS IN-PATIENT IS ABLE TO TALK BETTER WITH HER DENTURES IN. PATIENT IS PLEASANT AND COOPERATIVE WITH CARE. PATIENT USES CALL LIGHT APPROPRIATE. PATIENT WEARS GLASSES AT BASELINE-HOSPITAL READING GLASSES SUPPLIED TO PATIENT. PATIENT TAKES PILLS WHOLE WITH WATER, AND AMBULATES WITH 1P ASSIT. PATIENT UP IN RECLINER T/O MOST OF SHIFT, PATIENT JUST GOT BACK INTO BED FOR THE NIGHT WITH MACHINE SANDER. BED IS LOCKED IN THE LOWEST POSITION WITH CALL LIGHT IN REACH. CARE IS ONGOING.
[2024-12-27 19:55] VITALS: BP 146/91
[2024-12-27] MEDS ORDERED: MethylPREDNISolone Sod Succ 125 MG Vial IV SCH (21:00)
[2024-12-28 01:32] VITALS: BP 131/93
[2024-12-28 04:43] VITALS: BP 124/83
--- NOTE | 2024-12-28 05:19 | NUR ---
SHIFT SUMMARY PT A&O X4, CALM, COOPERATIVE TO CARE. SINUS TACH, HR IN THE 100'S. SHE DENIES ANY CP/PRESSURE, NUMB/TINGLING, SBP STABLE. 02 >92% ON RA. SHE DENIES ANY SOB. +BS, SHE DENIES ANY N/V. PT UP TO BSC A FEW TIMES T/O SHIFT. PT HAD A BM T/O NIGHT. NO ACUTE CHANGES T/O SHIFT. WILL MONITOR PT AND REPORT TO ONCOMING RN.
[2024-12-28 05:46] LABS: BASOPHILS ABSOLUTE AUTO 0.01 K/mm3 (0.00-0.23); BASOPHILS PERCENT AUTO 0 % (0-2); EOSINOPHILS PERCENT AUTO 0 % (0-6); Hematocrit 33.1 % (33.0-51.0); Hemoglobin 11.9 g/dL (11.5-16.0); IMMATURE GRAN ABSOLUTE AUTO 0.08 K/mm3 (0.00-0.10); IMMATURE GRAN PERCENT AUTO 1 % (0-1); LYMPHOCYTES ABSOLUTE AUTO 1.62 K/mm3 (0.84-5.20); LYMPHOCYTES PERCENT AUTO 13 % (21-46); MONOCYTES ABSOLUTE AUTO 0.75 K/mm3 (0.16-1.47); MONOCYTES PERCENT AUTO 6 % (4-13); Mean Corpuscular HGB 29.8 pg (26.0-34.0); Mean Corpuscular Volume 83 fL (80-100); Mean Platelet Volume 8.8 fL (9.1-12.4); NEUTROPHILS ABSOLUTE AUTO 10.24 K/mm3 (1.96-9.15); NEUTROPHILS PERCENT AUTO 81 % (41-73); Platelet Count 321 K/mm3 (150-400); RDW Standard Deviation 47.8 fL (35.1-46.3); Red Blood Cell Count 3.99 M/mm3 (3.80-5.20)
[2024-12-28 06:08] LABS: Bun/Creatinine Ratio 16.1 (12.0-20.0); Calcium, Blood 8.8 mg/dL (8.5-10.1); Creatinine, Blood 0.31 mg/dL (0.40-1.00); Phosphorus, Blood 1.9 mg/dL (2.5-4.9); Potassium, Blood 2.8 mmol/L (3.5-5.5)
--- NOTE | 2024-12-28 06:33 | NUR ---
UPDATE PT HAD MORNING LABS DRAWN, POTASSIUM CAME BACK AT 2.8. PROVIDER CALLED AND NOTIFIED. ORDER PLACED FOR KCL 40 MEQ.
[2024-12-28] MEDS ORDERED: Potassium Chloride 40 MEQ in NS 250 ML IV ONE (06:40)
[2024-12-28 07:30] VITALS: BP 151/93
[2024-12-28] MEDS ORDERED: Potassium Phosphate Dibasic 30 MM in Dextrose 5% 500 ML IV STA (08:01)
[2024-12-28] MEDS ORDERED: MethylPREDNISolone Sod Succ 40 MG VIAL IV SCH ×2 (09:35→21:00)
[2024-12-28 10:40] VITALS: BP 128/83
[2024-12-28] MEDS ORDERED: AZAT50 PO (11:22)
[2024-12-28] MEDS ORDERED: ZEBUTAL 50-3251 EA10 PO (11:35)
[2024-12-28] MEDS ORDERED: POLYMYXIN B-TMP10 ML BOTHEYES (11:37)
[2024-12-28] MEDS ORDERED: TIZA4 PO (11:39)
[2024-12-28] MEDS ORDERED: Voltaren100 GM TOP (11:40)
[2024-12-28] MEDS ORDERED: ACET500 PO (11:43)
[2024-12-28 11:44] LABS: Bun/Creatinine Ratio 14.2 (12.0-20.0); Calcium, Blood 8.8 mg/dL (8.5-10.1); Creatinine, Blood 0.35 mg/dL (0.40-1.00); Potassium, Blood 3.1 mmol/L (3.5-5.5)
[2024-12-28] MEDS ORDERED: LIDO700A20 TOP (13:39)
--- NOTE | 2024-12-28 14:06 | NUR ---
Pt. is awake and sitting up when she welcomes my visit. Pt. is pleasant. When this sound engineer audio control asked the Pt. if she remembered my first visit, she verbalized that she didn't recall. Considered matters of deborah and belief. Pt. identified as a [employer] member. Pt. displayed evidence of trust and we continued to consider matters of family and support. Pt. verbalized that she misses her two cats. Prayed with the Pt. Pt. verbalized gratitude for the spiritual care visit.
--- NOTE | 2024-12-28 14:34 | NUR ---
SHIFT SUMMARY: PATIENT REMAINS ALERT AND ORIENTED X 4 OVERALL IMPROVING, INCREASED MUSCLE STRENGHT, AND TOLERATED A REGULAR LUNCH, NO N/V/D, K+ KAYLA HAS UP TO 3.1, POATSSIUM PHOS STILL INFUSING. PATIENT HAS BEEN NORMOTENIVE ON NOON VITALS. 1 X BM STILL HAVING MINIMAL MENSTRAL BLOOD DENIES CHEST PAIN PRESSURE OR SOB. NO ACUTE CONCERNS AT THIS TIME. RA SPO2 >100%. PLAN OF CARE CONTINUES, PLAN FOR DISCHARGE TOMORROW AFTER SWITCH TO PO CORTICOSTEROIDS, AND TO FOLLOW UP OUTPATIENT WITH GI PROVIDER.
--- NOTE | 2024-12-28 19:03 | NUR ---
assumed care. pt a/o x 4 up from PCU, no c/o pain no distress. iv infusing and antibiotics given. pt able to make needs known call light within reach
[2024-12-28 19:10] VITALS: BP 129/79
[2024-12-29 01:07] VITALS: BP 116/80
--- NOTE | 2024-12-29 03:12 | NUR ---
SHIFT SUMMARY NO ACUTE EVENTS DURING THIS SHIFT. LR INFUSING ORDERED. PT DENIES PAIN AND DISCOMFORT. REGULAR DIET, GOOD INTAKE AT DINNER TIME. PT IS A/O X3-4, ABLE TO MAKE HER NEEDS KNOWN AND COOPERATIVE WITH CARE. SBA TO THE RESTROOM. VOIDING WELL. NO COMPLAINTS OFFERED. BED AT THE LOWEST POSITION, CALL LIGHT W/I REACH.
[2024-12-29 05:14] VITALS: BP 136/91
[2024-12-29 07:33] VITALS: BP 137/92
[2024-12-29] MEDS ORDERED: Acetamin/Butalbital/Caffeine Tab PO PRN (07:45)
[2024-12-29] MEDS ORDERED: TiZANidine HCl 4 MG Tab PO PRN (07:45)
[2024-12-29] MEDS ORDERED: Lidocaine 4% 1 Patch TOP PRN (08:15)
[2024-12-29] MEDS ORDERED: AzaTHIOprine 50 MG Tab PO SCH (09:00)
[2024-12-29] MEDS ORDERED: Polymyxin B /Trimethoprim Opth Soln 10 ML BOTHEYES SCH (09:00)
[2024-12-29 10:22] LABS: Bun/Creatinine Ratio 10.5 (12.0-20.0); Calcium, Blood 9.1 mg/dL (8.5-10.1); Creatinine, Blood 0.38 mg/dL (0.40-1.00); Potassium, Blood 2.9 mmol/L (3.5-5.5)
[2024-12-29 10:36] VITALS: BP 112/68
[2024-12-29] MEDS ORDERED: Potassium Chloride 40 MEQ in NS 250 ML IV SCH (10:50)
[2024-12-29] MEDS ORDERED: Potassium Chloride 20 MEQ TabCR PO ONE (10:55)
[2024-12-29] MEDS ORDERED: Diclofenac Sodium 100 GM TUBE TOP PRN (12:05)
[2024-12-29] MEDS ORDERED: POTCHL20ER PO (15:59)
--- NOTE | 2024-12-29 18:36 | NUR ---
ASSUMED CARE OF PT PT A/O X 4, VSS, PT SLIGHTLY MENTALLY DELAYED BUT IS VERY APPROPRIATE WITH ANSWERING QUERSTION AND UNDERSTANDING CURRENT SITUATION. PT WANTING TO BE DISCHARGED TODAY BUT NEEDS CONTINOUS MONIOTR DUE TO LOW POTASSIUM. TELE ALSO ALERTED THAT PT HEART RATE IN THE 130S SUSTAINED. DR KING WAS NOTIFIED WITH NO NEW ORDERS. PT ADDITONAL VITALS WERE WNL. K+ 2.9 WITH IV AND PO REPLACEMEN. 1500 PT WAS RECHECKS AND POT WAS 4.1. DR KING SPOKE WITH PT AND THOUGH HE WOULD HAVE PREFERRED TO HAVE PT STAY ADDITIONAL DAY PT STATED SHE WOULD LIKE TO GO HOME DISCHARGE INSTRUCTIONS WERE GIVEN AND FATHER CAME TO PICK PT UP. IVS DCED DISCHARGE INSTRUCTIONS WERE GIVEN PT VERBALIZED UNDERSTANDING.
== END 2024-12-29 17:10 | disposition home or self-care (01) | DRG 386 ==
LOC: ER 17:10 → PCU 19:33 → ERHOLD 19:33 → PCU 22:08 → MEDS 12-28 16:09
PROVIDERS: Family Medicine; Internal Medicine; Student in an Organized Health Care Education/Training Program; ADMIT Internal Medicine
PROC: 0D9670Z Drainage of Stomach with Drainage Device, Via Natural or Artificial Opening (ICD-10-PCS; principal; 2024-12-25)
DX: K50.90 Crohn's disease, unspecified, without complications (principal); E87.21 Acute metabolic acidosis; E87.6 Hypokalemia; R62.50 Unspecified lack of expected normal physiological development in childhood; F32.A Depression, unspecified; E83.39 Other disorders of phosphorus metabolism; E83.42 Hypomagnesemia; E88.89 Other specified metabolic disorders; Z88.1 Allergy status to other antibiotic agents; Z88.5 Allergy status to narcotic agent; Z88.8 Allergy status to other drugs, medicaments and biological substances; Z90.49 Acquired absence of other specified parts of digestive tract; Z98.890 Other specified postprocedural states; Z79.899 Other long term (current) drug therapy
CPT/HCPCS: 0241U; 36415; 70450; 71045; 74177; 80047; 80048; 80053; 81001; 82010; 82803; 82947; 83605; 83690; 83735; 83880; 83930; 84100; 84132; 85014; 85025; 87040; 87086; 93005; 93010; 96361; 96374-59; 96375; 99285-25; A9270; C1751; G0480; J0696; J2405; J2919; J3480; J7050; J7060; J7120; Q9967

== ENCOUNTER 2025-01-29 03:57 | Day surgery (SDC) | payer OTHER ==
[~2025-01-29 03:57] MED LIST changes: +ACET500 PO; +Infliximab-DYYB 300 MG in NS 250 ML IV SCH; +LIDO700A20 TOP; +POLYMYXIN B-TMP10 ML BOTHEYES; +POTCHL20ER PO; +TIZA4 PO; +Voltaren100 GM TOP; +ZEBUTAL 50-3251 EA10 PO
[2025-01-29] MEDS ORDERED: Hydrocortisone Sod Succinate 100 MG Vial IV SCH (07:05)
[2025-01-29] MEDS ORDERED: Acetaminophen 325 MG TABLET PO SCH (07:05)
[2025-01-29] MEDS ORDERED: DiphenhydrAMINE HCL 25 MG Cap PO SCH (07:05)
[2025-01-29 13:27] VITALS: BP 121/76
== END 2025-01-29 16:05 | disposition home or self-care (01) ==
LOC: ATC 03:57
DX: K50.90 Crohn's disease, unspecified, without complications (principal); K90.0 Celiac disease; Z86.0101 Personal history of adenomatous and serrated colon polyps; Z79.899 Other long term (current) drug therapy; Z88.5 Allergy status to narcotic agent; Z88.6 Allergy status to analgesic agent
CPT/HCPCS: 96375; 96413; 96415; A9270; J1720; J7050; Q5103

== ENCOUNTER 2025-03-28 04:07 | Day surgery (SDC) | payer OTHER ==
[~2025-03-28 04:07] MED LIST changes: -Infliximab-DYYB 300 MG in NS 250 ML IV SCH
[2025-03-28 14:35] VITALS: BP 125/76
== END 2025-03-28 17:15 | disposition home or self-care (01) ==
LOC: ATC 04:07
DX: K50.90 Crohn's disease, unspecified, without complications (principal); K90.0 Celiac disease; J45.909 Unspecified asthma, uncomplicated; Z79.620 Long term (current) use of immunosuppressive biologic; Z79.624 Long term (current) use of inhibitors of nucleotide synthesis; Z79.899 Other long term (current) drug therapy; Z88.5 Allergy status to narcotic agent; Z88.6 Allergy status to analgesic agent
CPT/HCPCS: 96375; 96413; 96415; A9270; J1720; J7050; Q5103

== ENCOUNTER 2025-04-17 13:07 | Day surgery (SDC) | payer OTHER ==
[~2025-04-17] VITALS: Ht 144.8 cm; Wt 50.9 kg
[~2025-04-17 13:07] MED LIST changes: +Glycopyrrolate 0.2 MG/ML 1MLVIAL ONE; +Ondansetron HCl 2 MG / ML 2ML Vial ONE; +ePHEDrine Sulfate 50 MG/ML 1ML Injection ONE
[2025-04-17] MEDS ORDERED: SERT100 (14:06)
[2025-04-17 16:18] VITALS: BP 114/70
== END 2025-04-17 16:16 | disposition home or self-care (01) ==
LOC: ORSCSDS 13:07
PROVIDERS: Specialist
PROC: 0DBH8ZX Excision of Cecum, Via Natural or Artificial Opening Endoscopic, Diagnostic (ICD-10-PCS; principal; 2025-04-17 15:00)
PROC: 0DBN8ZX Excision of Sigmoid Colon, Via Natural or Artificial Opening Endoscopic, Diagnostic (ICD-10-PCS; principal; 2025-04-17 15:00)
PROC: 0DBK8ZX Excision of Ascending Colon, Via Natural or Artificial Opening Endoscopic, Diagnostic (ICD-10-PCS; principal; 2025-04-17 15:00)
PROC: 0DBL8ZX Excision of Transverse Colon, Via Natural or Artificial Opening Endoscopic, Diagnostic (ICD-10-PCS; principal; 2025-04-17 15:00)
PROC: 0DBM8ZX Excision of Descending Colon, Via Natural or Artificial Opening Endoscopic, Diagnostic (ICD-10-PCS; principal; 2025-04-17 15:00)
DX: K51.90 Ulcerative colitis, unspecified, without complications (principal); F43.10 Post-traumatic stress disorder, unspecified; J45.909 Unspecified asthma, uncomplicated; K64.8 Other hemorrhoids; Z79.899 Other long term (current) drug therapy
CPT/HCPCS: 88305; J2003; J2405; J2704; J7120

== ENCOUNTER 2025-05-23 03:57 | Day surgery (SDC) | payer OTHER ==
[~2025-05-23 03:57] MED LIST changes: -Glycopyrrolate 0.2 MG/ML 1MLVIAL ONE; -Ondansetron HCl 2 MG / ML 2ML Vial ONE; +SERT100; -ePHEDrine Sulfate 50 MG/ML 1ML Injection ONE
[2025-05-23 13:24] VITALS: BP 115/72
== END 2025-05-23 16:02 | disposition home or self-care (01) ==
LOC: ATC 03:57
DX: K50.90 Crohn's disease, unspecified, without complications (principal); K90.0 Celiac disease; Z86.0101 Personal history of adenomatous and serrated colon polyps; Z79.624 Long term (current) use of inhibitors of nucleotide synthesis; Z79.899 Other long term (current) drug therapy; Z88.5 Allergy status to narcotic agent
CPT/HCPCS: 96375; 96413; 96415; A9270; J1720; J7050; Q5103

== ENCOUNTER 2025-07-18 06:33 | Day surgery (SDC) | payer OTHER ==
[~2025-07-18] VITALS: Wt 50.8 kg
[2025-07-18 14:19] VITALS: BP 115/73
--- NOTE | 2025-07-18 16:20 | NUR ---
INFLECTRA INFUSION PAUSED DUE TO INFILTRATION OF IV. PHARMACY CONSULTED FOR MANAGEMENT, PT AGREEABLE TO PLAN. SEE IV ASSESSMENT FOR DETAILS.
--- NOTE | 2025-07-18 17:32 | NUR ---
VICTORINO LONGORIA NOTIFIED OF INFLECTRA INFULTRATION. NEW ORDER WRITTEN TO GIVE 150 MG INFLECTRA IN ONE WEEK. PT AGREEABLE WITH PLAN.
== END 2025-07-18 17:05 | disposition home or self-care (01) ==
LOC: ATC 06:33
DX: K51.30 Ulcerative (chronic) rectosigmoiditis without complications (principal); F43.10 Post-traumatic stress disorder, unspecified; J45.909 Unspecified asthma, uncomplicated; Z90.49 Acquired absence of other specified parts of digestive tract
CPT/HCPCS: 96374; 96413; A9270; J1720; J7050; Q5103

== ENCOUNTER 2025-08-02 02:22 | Day surgery (SDC) | payer OTHER ==
[~2025-08-02 02:22] MED LIST changes: +INFLIXIMAB DYYB IV SCH; +NS IV SCH
[2025-08-02 13:45] VITALS: BP 129/71
== END 2025-08-02 16:38 | disposition home or self-care (01) ==
LOC: ATC 02:22
DX: K51.30 Ulcerative (chronic) rectosigmoiditis without complications (principal); Z88.8 Allergy status to other drugs, medicaments and biological substances
CPT/HCPCS: 96374; 96413; A9270; C1751; J1720; J7050; Q5103